=== PATIENT | female | born 1970 | race Caucasian/White ===

== ENCOUNTER 2020-02-16 17:39 | Emergency (ER) | payer OTHER, SELFPAY ==
[2020-02-16 17:50] VITALS: BP 146/96; PULSE 79; RESP 16; TEMP 36.3; O2SAT 98
--- NOTE | 2020-02-16 18:17 | ED.WOUNDLAC ---
HPI - Wound/Laceration General Chief Complaint: Wound/Laceration Stated Complaint: Laceration Left thumb Time Seen by Provider: 02/16/20 18:18 Source: patient, family and RN notes reviewed Mode of arrival: ambulatory Limitations: no limitations History of Present Illness HPI narrative: 49-year-old female who presents to [facility] care with laceration to tuft of left thumb which occurred at home with last hour while slicing up vegetables. Patient has flap type of laceration with no injury to her nail bed, moderate amount of bleeding noted. Patient states that she takes no blood thinners daily and has hard time trying to get it to stop bleeding. Patient has full mobility of her left thumb, no tingling or numbness to her left thumb, nailbed has brisk capillary refill, Onset (ago): hour(s) (1) Location: other (Thumb left tuft area) Extremity Location: Left: hand (left thumb tuft area) Place: home Patient tetanus UTD: No Context: accidental Associated symptoms: none Treatments prior to arrival: bandage Related Data Allergies Allergy/AdvReac Type Severity Reaction Status Date / Time No Known Allergies Allergy Mild Verified 02/08/10 17:15 Review of Systems Review of Systems: Narrative: CONSTITUTIONAL: Denies fever, chills, or sweats. EYES: Denies visual changes, redness, or discharge. ENT: Denies rhinorrhea, congestion, sore throat, or otalgia. CARDIOVASCULAR: Denies chest pain, palpitations, or edema. RESPIRATORY: Denies cough or dyspnea. GASTROINTESTINAL: Denies abdominal pain, nausea, vomiting, or diarrhea. GENITOURINARY: Denies dysuria or hematuria. SKIN: Denies rash or itching. flap type of laceration to left thumb tuft region. MUSCULOSKELETAL: Denies back pain, joint pain, or myalgia. NEUROLOGIC: Denies headache, numbness, or weakness. PSYCHIATRIC: Denies anxiety or depression. All systems reviewed & are unremarkable except as noted in HPI and below PMFSH Past Medical History Medical History (Updated 02/17/20 @ 14:35 by Damaris Gaxiola NP) H/O thyroid cyst Surgical History Surgical History (Updated 02/17/20 @ 14:26 by Damaris Gaxiola NP) History of back surgery Family History Family History Father Hypertension Grandparent Asthma Mother Asthma Sibling Asthma Social History Social History (Updated 02/17/20 @ 14:28 by Damaris Gaxiola NP) Smoking status: Never smoker Alcohol intake: current Living arrangements: with family Gender identity (if verbalized by the patient): Female Comments At time of signature, agree with nursing past medical, surgical, social history. There is no relevant family history pertinent to the presenting complaint Exam Narrative: Exam Narrative: GENERAL: Well-appearing, well-nourished, and in no acute distress. HEAD: Normocephalic, atraumatic. EYES: PERRLA and EOMI. ENT: Nares clear, no rhinorrhea or epistaxis. Mucous membranes moist. NECK: Supple. CHEST: Clear to auscultation. No respiratory distress. HEART: Regular rate and rhythm. No murmur heard. Normal peripheral pulses. ABDOMEN: Soft, nontender, nondistended, normal active bowel sounds. EXTREMITIES: Normal range of motion. No edema.1.5cm flap type of laceration to the tuft of her left thumb, no tingling or numbness with full mobility of her thumb, nailbed has brisk capillary refill, strong left radial pulse SKIN: Warm, dry, no rash. NEURO: No focal deficits. Alert and oriented x3. Course Vital Signs Vital signs: Vital Signs Temperature 36.3 C L 02/16/20 17:50 Pulse Rate 79 02/16/20 17:50 Respiratory Rate 16 02/16/20 17:50 Blood Pressure 146/96 H 02/16/20 17:50 Pulse Oximetry 98 02/16/20 17:50 Temperature 36.3 C L 02/16/20 17:50 Pulse Rate 79 02/16/20 17:50 Respiratory Rate 16 02/16/20 17:50 Blood Pressure 146/96 H 02/16/20 17:50 Pulse Oximetry 98 02/16/20 17:50 Procedures Laceration left thumb tuft:
[2020-02-16] MEDS: TETANUS,DIPHTHERIA,AC PERTUSSIS ADULT (0.5 ML) BOOSTRIX IM (18:26)
== END 2020-02-16 19:05 | disposition home or self-care (01) ==
PROVIDERS: Emergency Provider Registered Nurse; PCP Family Medicine
DX: S61.012A Laceration without foreign body of left thumb without damage to nail, initial encounter (principal); Y93.G1 Activity, food preparation and clean up; Z23 Encounter for immunization; W26.0XXA Contact with knife, initial encounter
CPT/HCPCS: 12001; 90471; 90715; 99213; G0463

== ENCOUNTER 2021-06-20 16:55 | Outpatient (CLI) | payer OTHER, SELFPAY ==
--- NOTE | ~2021-06-20 | MM_ITS ---
EXAMINATION: MM screening junior BI w benitez HISTORY: Screening mammogram TECHNIQUE: Craniocaudal and mediolateral oblique 3-D tomosynthesis images were obtained and synthetic 2-D images were generated. CAD analysis was submitted and interpreted. COMPARISON: No prior mammogram is available for comparison at this institution. BREAST PARENCHYMAL COMPOSITION: There are scattered areas of fibroglandular density. FINDINGS: RIGHT BREAST: There is no evidence of suspicious mass, calcification, or architectural distortion to suggest malignancy. LEFT BREAST: There is a possible mass in the anterior third of the slightly inner breast. IMPRESSION: 1. Possible left breast mass. 2. Additional mammographic views and possible breast ultrasound are recommended. BI-RADS Category 0: Incomplete: Needs additional imaging evaluation. Reviewed, dictated and finalized at location A. IMPRESSION: 1. Possible left breast mass. 2. Additional mammographic views and possible breast ultrasound are recommended . BI-RADS Category 0: Incomplete: Needs additional imaging evaluation.
== END 2021-06-20 16:56 | disposition home or self-care (01) ==
PROVIDERS: PCP Family Medicine; Visit Provider Family Medicine
DX: Z12.31 Encounter for screening mammogram for malignant neoplasm of breast (principal); R92.8 Other abnormal and inconclusive findings on diagnostic imaging of breast
CPT/HCPCS: 77063; 77067

== ENCOUNTER 2021-07-27 13:19 | Outpatient (CLI) | payer OTHER, SELFPAY ==
--- NOTE | ~2021-07-27 | MMUS_ITS ---
EXAMINATION: MM diagnostic junior LT w benitez, US breast LT limited HISTORY: Follow-up left breast asymmetry TECHNIQUE: Additional 3-D tomosynthesis images of the left breast were performed and synthetic 2-D im ages were generated. CAD analysis was submitted and interpreted. High resolution Limited left breast ultrasound was performed. COMPARISON: 06/20/2021 BREAST PARENCHYMAL COMPOSITION: Breast composed of scattered areas of fibroglandular density. FINDINGS: MAMMOGRAPHIC FINDINGS: There are no suspicious masses, calcifications or architectural distortion in the left breast to sugg est malignancy. ULTRASOUND: Limited left breast ultrasound: Normal heterogeneous echotexture without focal solid or cystic mass. IMPRESSION: 1. No evidence for malignancy in the left breast. 2. Routine yearly screening mammogram and regular clinical breast examination are recommended. BI-RADS Category 1: Negative Reviewed, dictated and finalized at location A. IMPRESSION: 1. No evidence for malignancy in the left breast. 2. Routine yearly screening mammogram and regular clinical breast examination a re recommended. BI-RADS Category 1: Negative
== END 2021-07-27 13:20 | disposition home or self-care (01) ==
LOC: ANHIMG 13:21
PROVIDERS: PCP Family Medicine; Visit Provider Family Medicine
DX: R92.8 Other abnormal and inconclusive findings on diagnostic imaging of breast (principal)
CPT/HCPCS: 76642; 77061; 77065; G0279

== ENCOUNTER → 2022-05-14 09:01 | Outpatient (CLI) | payer SELFPAY ==
[2022-05-14 11:25] LABS: SARS-CoV-2 RNA PCR Positive
== END ==
PROVIDERS: PCP Family Medicine; Visit Provider Physician Assistant
DX: U07.1 COVID-19 (principal)
CPT/HCPCS: C9803; U0003; U0005

== ENCOUNTER 2023-01-31 17:08 | Emergency (ER) | payer OTHER, SELFPAY ==
[2023-01-31 17:22] VITALS: BP 156/94; PULSE 83; RESP 14; TEMP 36.4; O2SAT 100
--- NOTE | 2023-01-31 17:57 | ED.URI ---
HPI - URI/Sore Throat General Chief Complaint: Upper Respiratory Infection Stated Complaint: Cough Time Seen by Provider: 01/31/23 17:56 Source: patient and RN notes reviewed Mode of arrival: ambulatory Limitations: no limitations History of Present Illness HPI Narrative: 52-year-old female presents concern for 10 day history of persistent cough. Reports she called her primary care doctor who called her in doxycycline which she started 3 days ago. She reports no improvement from the doxycycline. She reports she is taking [id number] cold medicines without relief. She reports raw throat from coughing, denies sore throat. Denies fever, aches, chills, sweats MD elicited complaint: cough Related Data Home Medications Medication Instructions Recorded Confirmed buspirone 7.5 mg tablet 7.5 mg PO DIRECTED 01/31/23 01/31/23 doxycycline hyclate 100 mg tablet 100 mg PO BID 01/31/23 01/31/23 hydroxyzine HCl 50 mg tablet 50 mg PO DIRECTED 01/31/23 01/31/23 meloxicam 7.5 mg tablet 7.5 mg PO DIRECTED 01/31/23 01/31/23 orphenadrine citrate 100 mg 100 mg PO DIRECTED 01/31/23 01/31/23 tablet,extended release Allergies Allergy/AdvReac Type Severity Reaction Status Date / Time No Known Allergies Allergy Mild Verified 01/31/23 17:35 Review of Systems Review of Systems: CONSTITUTIONAL: Denies malaise, chills, sweats, or fever. EYES: Denies visual changes, redness, or discharge. ENT: Denies rhinorrhea, congestion, sinus pain, otalgia and sore throat. CARDIOVASCULAR: Denies chest pain, palpitations, or edema. RESPIRATORY: Reports cough. Denies dyspnea. GASTROINTESTINAL: Denies abdominal pain, nausea, vomiting, diarrhea SKIN: Denies rash or itching. MUSCULOSKELETAL: Denies myalgia. NEUROLOGIC: Denies headache. All systems reviewed & are unremarkable except as noted in HPI and below PMFSH Past Medical History Medical History (Updated 01/31/23 @ 18:03 by Tiffany Fisher NP) H/O thyroid cyst Surgical History Surgical History (Updated 02/17/20 @ 14:26 by Damaris Gaxiola NP) History of back surgery Family History Family History Father Hypertension Grandparent Asthma Mother Asthma Sibling Asthma Social History Social History (Updated 02/17/20 @ 14:28 by Damaris Gaxiola NP) Smoking status: Never smoker Alcohol intake: current Living arrangements: with family Gender identity (if verbalized by the patient): Female Comments At time of signature, agree with nursing past medical, surgical, social and family history. There is no relevant family history pertinent to the presenting complaint Exam Narrative: GENERAL: Well-appearing, well-nourished, and in no acute distress. HEAD: Normocephalic EYES: PERRLA, conjunctivae clear ENT: Nares clear, turbinates edematous and erythematous, clear discharge. Mucous membranes moist. TM pearly sifuentes with sharp light reflex bilaterally; no tragal tenderness. Oropharynx not erythematous without lesions. Tonsils not enlarged and without exudate, no drooling, no hoarseness, no trismus, uvula midline. NECK: Supple. No lymphadenopathy CHEST: Clear to auscultation, breath sounds equal. No wheezing, rhonchi, rales, or stridor. No respiratory distress, speaks in full sentences. HEART: Regular rate and rhythm. No murmur heard. SKIN: Warm, dry, no rash. NEURO: Alert and oriented x3. PSYCH: Normal mood and affect Course Course Emergency Course: Patient is aware of diagnosis, understands and agrees to treatment plan. Anticipatory guidance given. Patient agrees to follow-up as directed and is aware of reasons to seek care at the emergency department. Portions of this record may have been created with voice recognition software Level of Care: Express Care Visit Vital Signs Vital signs: Vital Signs Temperature 97.5 F L 01/31/23 17:22 Pulse Rate 83 01/31/23 17:22 Respiratory Rate 14 01/31/23 17:2
== END 2023-01-31 18:07 | disposition home or self-care (01) ==
PROVIDERS: Emergency Provider Nurse Practitioner; PCP Family Medicine
DX: J40 Bronchitis, not specified as acute or chronic (principal)
CPT/HCPCS: 99213; G0463